=== PATIENT | female | born 1990 | race Caucasian/White ===

== ENCOUNTER 2020-03-08 03:07 | Outpatient (CLI) | payer OTHER, SELFPAY ==
[2020-03-08 10:14] LABS: HCT 43.6 % (36.0-46.0); HGB 14.8 g/dL (11.2-15.7); MCH 29.9 pg (27.0-33.0); MCHC 33.9 % (32.0-36.0); MCV 88.1 fL (80-95); MPV 9.1 fL (8.0-11.0); Platelet Count 349 10^3/uL (130-400); RBC 4.95 10^6/uL (3.93-5.22); RDW 11.9 % (11.7-14.6); RDW-SD 38.4 fL
[2020-03-08 11:27] LABS: ALT 24 U/L (14-59); AST 11 U/L (15-37); Albumin 4.4 g/dL (3.4-5.0); Alkaline Phosphatase 49 U/L (46-116); Anion Gap 8.2 mmol/L (3-11); BUN 16 mg/dL (7-18); Bilirubin, Total 0.6 mg/dL (0.2-1.0); CO2 26.8 mmol/L (21.0-32.0); CREATININE 0.85 mg/dL (0.55-1.02); Calcium 8.7 mg/dL (8.5-10.1); Calculated LDL 176 mg/dL (<100); Chloride 104 mmol/L (98-107); Cholesterol 268 mg/dL (<200); Glucose 89 mg/dL (74-106); HDL Cholesterol 84 mg/dL (40-60); Sodium 139 mmol/L (136-145); TSH (W/Ref FT4) 2.82 uIU/mL (0.36-3.74); Total Protein 7.7 g/dL (6.4-8.2); Triglyceride 44 mg/dL (<150)
== END 2020-03-08 03:27 ==
PROVIDERS: PCP Family Medicine; Visit Provider Family Medicine
DX: Z00.00 Encounter for general adult medical examination without abnormal findings (principal)
CPT/HCPCS: 36415; 80053; 80061; 85027; 84443

== ENCOUNTER 2021-06-06 03:35 | Outpatient (CLI) | payer OTHER, SELFPAY ==
[2021-06-06 08:07] LABS: Hemoglobin A1C 4.8 % (<5.7)
[2021-06-06 09:53] LABS: ALT 26 U/L (14-59); AST 13 U/L (15-37); Albumin 4.3 g/dL (3.4-5.0); Alkaline Phosphatase 52 U/L (46-116); Anion Gap 6.6 mmol/L (3-11); BUN 13 mg/dL (7-18); Bilirubin, Total 0.7 mg/dL (0.2-1.0); CO2 28.4 mmol/L (21.0-32.0); CREATININE 0.8 mg/dL (0.55-1.02); Calculated LDL 167 mg/dL (<100); Chloride 106 mmol/L (98-107); Cholesterol 253 mg/dL (<200); Glucose 86 mg/dL (74-106); HDL Cholesterol 67 mg/dL (40-60); Potassium 4.2 mmol/L (3.5-5.1); Sodium 141 mmol/L (136-145); TSH (W/Ref FT4) 2.79 uIU/mL (0.36-3.74); Total Protein 7.4 g/dL (6.4-8.2); Triglyceride 96 mg/dL (<150)
== END 2021-06-06 03:36 | disposition home or self-care (01) ==
LOC: LBO 03:35
PROVIDERS: PCP Family Medicine; Visit Provider Family Medicine
DX: Z00.00 Encounter for general adult medical examination without abnormal findings (principal); E11.9 Type 2 diabetes mellitus without complications
CPT/HCPCS: 36415; 80053; 80061; 83036; 84443

== ENCOUNTER 2023-08-20 09:40 | Outpatient (REF) | payer OTHER, SELFPAY ==
--- NOTE | 2023-08-20 08:40 | PAPFT_PTH ---
PATIENT: Vicki Ferrell LOC: DO U#:[id number] AGE/SX: 33/F ROOM: RE08/20/[address]: Iman Riddle NP : 1990 BED: DIS: 08/20/2023 SPEC #: [id number] RECD: 08/20/23 13:14 STATUS: MARÍAKary HEMPHILL #: [id number] RAMIN: 08/20/23 08:[address]: Iman Riddle NP DEPT: [facility] Cytology RECD BY: Sarah Melara ENTERED: 08/20/23 13:15 SP TYPE: PAPFT OTHR DR: Patsy Hernández MD, DC Tissues: 1 - CX/ENDOCX FOR PAP SMEARS Procedures: PAP THIN PREP/UVM Screening HPV DNA PROBE Comments: [id number]
== END 2023-08-20 09:41 | disposition home or self-care (01) ==
LOC: LBN 09:40
PROVIDERS: PCP Family Medicine; Visit Provider Nurse Practitioner Women's Health
DX: Z12.4 Encounter for screening for malignant neoplasm of cervix (principal)
CPT/HCPCS: 88142; 87624

== ENCOUNTER 2024-02-21 18:07 | Emergency (ER) | payer OTHER, SELFPAY ==
[2024-02-21 18:09] VITALS: BP 135/85; PULSE 103; RESP 18; TEMP 37.6; O2SAT 98
--- NOTE | 2024-02-21 18:15 | DI.RAD_ITS ---
Exam(s) XR CHEST 2V PA LATERAL EXAM: XR CHEST 2V PA LATERAL CLINICAL HISTORY: cough, fever TECHNIQUE: 2D digital imaging was performed. Two views. COMPARISON: No exams were available for comparison FINDINGS: HEART: Normal size. Aorta: Not dilated. PULMONARY VASCULATURE: Normal. MEDIASTINUM: Unremarkable. LUNGS: A patchy infiltrate is noted in the posterior left lower lobe. The right lung is clear. PLEURAL SPACE: No pleural effusion or pneumothorax. BONE:Unremarkable for age. SOFT TISSUES: Unremarkable. IMPRESSION: Left lower lobe pneumonia. DATA REPOSITORY: RADIATION DOSE DELIVERED:
[2024-02-21 18:23] VITALS: BP 135/85; PULSE 103; RESP 18; TEMP 37.6; O2SAT 98
--- NOTE | 2024-02-21 18:23 | ED.GENADUL_ITS ---
Discharge Plan Disposition Patient Disposition: Home Condition: Stable Discharge Details Clinical Impression: Left lower lobe pneumonia Primary Care Provider: Patsy Hernández ED Provider: Saeed Dickerson Home Meds and New Rx's Prescriptions: New amoxicillin-pot clavulanate 875-125 mg tablet 1 tab PO BID 5 Days Qty: 10 0RF azithromycin 250 mg tablet 250 mg PO DAILY 4 Days Qty: 4 0RF Rx Instructions: start on day 2 of therapy Continued Xywav 0.5 gram/mL solution 4.5 g PO BID Rx Instructions: administer the first dose at bedtime and the second dose 2.5-4 hours later lisdexamfetamine [Vyvanse] 20 mg capsule 40 mg PO DAILY albuterol sulfate [Ventolin HFA] 90 mcg/actuation HFA aerosol inhaler 2 puff inhalation QID PRN (Reason: shortness of breath or wheezing) Qty: 8.5 4RF Discharge Instructions Instructions: Azithromycin (Systemic), Amoxicillin and Clavulanate, Pneumonia, Adult ED Additional Instructions: You were seen in the emergency department for left lower lobe pneumonia. I am starting you on 2 different antibiotics to cover nearly all causes of bacterial pneumonia including Augmentin and azithromycin. 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 Please use therapeutic dosing of Tylenol (acetamenophen) & Advil (ibuprofen) in an alternating fashion as follows: Take 1000mg of Tylenol every 6 hours without missing doses- that is 4 times per day. [place] in between the Tylenol dosings, take 400-600mg of Advil also on a 6 hour schedule, that is also 4 times per day. The daily maximum dosing of Tylenol is 4000mg, and the daily maximum dosing of Advil is 2400mg. This is safe to do for weeks. Please note that some common cold medications & prescription pain medications may contain acetamenophen and you need to read OTC drug labels and factor that in to maximum daily dosings. Use your inhaler as needed for mild shortness of breath, please return to the emergency department for any severe increase in respiratory distress Referrals: Patsy Hernández MD, [place] [Primary Care Provider] - Discharge Data Discharge Date/Time-TO BE ENTERED AT DEPARTURE: 02/21/24 19:23 HPI General Date/Time Provider Initiated Documentation: 02/21/24 18:12 . HPI Narrative: 33 year-old female presents to ED today by POV/ambulating with a chief complaint of fevers, feels lousy, coughing with onset all week. Quality described as malaise, body aches, mild dizziness, no radiation to shortness of breath, chest pain, intractable nausea/vomiting, syncope. Severity is described as moderate to severe. Palliating factors include taking intermittent Tylenol and ibuprofen. Provoking factors include nothing specific. Patient not anticoagulated. Related Data Home Medications ?Medication ?Instructions ?Recorded ?Confirmed sodium, calcium, magnesium, 4.5 g PO BID 04/14/21 02/21/24 potassium oxybates 0.5 gram/mL oral soln (Xywav) albuterol sulfate 90 mcg/actuation 2 puff inhalation QID PRN 01/31/22 02/21/24 aerosol inhaler (Ventolin HFA) shortness of breath or wheezing #8.5 grams lisdexamfetamine 20 mg capsule 40 mg PO DAILY 05/04/22 02/21/24 (Vyvanse) amoxicillin 875 mg-potassium 1 tab PO BID 5 days #10 tabs 02/21/24 clavulanate 125 mg tablet azithromycin 250 mg tablet 250 mg PO DAILY 4 days #4 tabs 02/21/24 Previous Rx's ?Medication ?Instructions ?Recorded albuterol sulfate 90 mcg/actuation 2 puff inhalation QID PRN 01/31/22 aerosol inhaler (Ventolin HFA) shortness of breath or wheezing #8.5 grams amoxicillin 875 mg-potassium 1 tab PO BID 5 days #10 tabs 02/21/24 clavulanate 125 mg tablet azithromycin 250 mg tablet 250 mg PO DAILY 4 days #4 tabs 02/21/24 Allergies Allergy/AdvReac Type Severity Reaction Status Date / Time protriptyline AdvReac Intermediate Swelling/Ed Unverified 02/21/24 18:12 mauro General Stated Complaint: Fever ABBEY: 3 Review of Systems All systems reviewed & are unremarkable except as noted in HPI and below Exam Narrative Exam Narrative: GENERAL APPEARANCE: Well-nourished, non-toxic, awake and alert, atraumatic, no acute distress. SKIN: Warm, pink, dry, intact, without rashes/lesions/ulcerations. HEAD: Normocephalic, atraumatic, normal hair distribution for gender/age. EYES: Normal conjunctiva, no exudates on lids/lashes. ENT: Nares patent, no circumoral cyanosis, no facial swelling NECK: Supple, trachea midline, painless cervical ROM. LUNGS/CHEST: Lungs CTA bilaterally, non-labored respirations, normal A/P diameter, symmetrical expansion, no chest wall deformity HEART (CV/PV): Regular rate and rhythm without murmur, no peripheral edema, no JVD. ABDOMEN: Soft, non-distended, no guarding. MSK: Normal ROM, no swelling/deformity to bilateral UEs or LEs, moving all extremities without weakness, no cyanosis, spine midline without tenderness, normal curvature. NEURO: Mental Status AAOx4 - alert to person, place, time, events No facial droop, no forehead involvement. Motor: No focal weakness - strength 5/5 in bilateral UEs and LEs, proximal and distal, symmetric. Sensory: sensation intact to light touch globally. Gait normal: patient ambulated without ataxia into ED room. PSYCH: euthymic, cooperative, pleasant, appropriate speech Course Vital Signs Vital signs: Vital Signs Temperature 37.6 C 02/21/24 18:09 Pulse 103 H 02/21/24 18:09 Respiratory Rate 18 02/21/24 18:09 Blood Pressure 135/85 02/21/24 18:09 Pulse Oximetry 98 02/21/24 18:09 Temperature 37.6 C 02/21/24 18:09 Pulse 103 H 02/21/24 18:09 Respiratory Rate 18 02/21/24 18:09 Blood Pressure 135/85 02/21/24 18:09 Pulse Oximetry 98 02/21/24 18:09 Medical Decision Making This dictation utilizes [id number] dictation software and may contain unedited grammatical errors. 33 year-old female presents to ED today by POV/ambulating with a chief complaint of fevers, feels lousy, coughing with onset all week. Quality described as ma laise, body aches, mild dizziness, no radiation to shortness of breath, chest pain, intractable nausea/vomiting, syncope. Severity is described as moderate to severe. Palliating factors include taking intermittent Tylenol and ibuprofen. Provoking factors include nothing specific. Patients' medical history: Asthma. Family and social history: noncontributory, no recent travel, no sick contacts. Pertinent exam findings / vital signs include lungs CTA, benign cardiac exam, nontoxic vitals. Differential / pathologies of concern include pneumonia, viral syndrome, not hypoxic respiratory failure. Diagnostic studies of: -X-ray chest, COVID/flu/RSV PCR-x-ray shows left lower lobe pneumonia, viral panel negative. Interventions of: -Started on azithromycin/Augmentin. ED Course/Assessment/Plan: 33-year-old otherwise healthy female presents with a week onset of fever and mild cough, has no hypoxia, has been tolerating p.o. intake and in no respiratory distress, x-ray shows left lower lobe pneumonia and started antibiotic treatment, stressed strict return criteria for any worsening despite treatment or respiratory distress. Findings not consistent with sepsis, hypoxic respiratory failure. Disposition of Left Lower Lobe Pneumonia. Patient verbalized understanding of the plan and return to ED criteria and engaged in shared decision making. Medical Records Medical records reviewed: Yes I reviewed the patient's medical records. Imaging Data Radiologic Study: Attestation: I personally reviewed and interpreted this imaging study as follows: Imaging: X-Ray Radiologist's impression: EXAM: XR CHEST 2V PA LATERAL CLINICAL HISTORY: cough, fever TECHNIQUE: 2D digital imaging was performed. Two views. COMPARISON: No exams were available for comparison FINDINGS: HEART: Normal size. Aorta: Not dilated. PULMONARY VASCULATURE: Normal. MEDIASTINUM: Unremarkable. LUNGS: A patchy infiltrate is noted in the posterior left lower lobe. The right lung is clear. PLEURAL SPACE: No pleural effusion or pneumothorax. BONE:Unremarkable for age. SOFT TISSUES: Unremarkable. IMPRESSION: Left lower lobe pneumonia. Lab Data Lab results reviewed: Yes I reviewed the patient's lab results. 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 has stopped Lisdexamfetamine and continued Sodium Oxybate Asthma (Chronic) Medical History (Updated 02/21/24 @ 18:52 by ALESHIA Mejias) Depressive disorder Fatigue neg labs Neck ache 07/02/14 Rash 07/02/14 Skin lesion of face 08/11/14 left eyebrow, bubbly lesion 3mm by 2mm present over a year Surgical History (Updated 08/20/23 @ 08:48 by Iman Riddle NP) H/O knee surgery right knee; ligament tear x 2 S/P tonsillectomy and adenoidectomy 03/12/08 Family History Mother Depression Hyperlipidemia Father , age 57 Essential hypertension Bladder cancer Sister Hypothyroid Brother Depression Maternal Grandfather , in his 70s Diabetes Heart disease Chronic obstructive lung disease Lung cancer Throat cancer Alcohol abuse Paternal Grandfather Diabetes Essential hypertension Prostate cancer Depression Hyperlipidemia Maternal Grandmother , in her 70s Diabetes Heart disease Stroke Depression Cancer ? COLON Hypertension Paternal Grandmother Essential hypertension Hyperlipidemia Depression Daughter No problems noted. Daughter No problems noted. Social History Smoking/Tobacco Use Status: Never Second Hand Exposure: No Smoking risk assessment performed?: Yes Alcohol Intake: current Alcohol Intake frequency: a few times a month Alcohol type: hard liquor Drug use: Never Substance use type: does not use Caregiver/Support person: No Household members: spouse and children Housing: house Communication Needs: None Do you need help understanding health information?: Rarely Pets and animals: Yes Pets and animals: dog(s) Sexually active: Yes Do you think of yourself as: straight/heterosexual Current gender identity: female What is your relationship status?: How often do you talk on the phone with friends or family?: three or more times per week How often do you get together with friends or relatives?: three or more times per week How often do you attend episcopal or protestant services?: decline to answer Do you belong to any clubs or organized social groups?: yes Panel score (0-1 are the most socially isolated patients): 3 What type of physical activity do you participate in: walking and aerobic Duration: 60-90 minutes/day Frequency: 1-2 times per week Jennifer/Episcopal: None Special jennifer needs: No Seatbelt use: always Helmet use: Yes Helmet use: always Drive intox or ride w/intox hydraulic lift driver: No Do you feel safe in your relationship?: Yes Victim of physical abuse: No Victim of emotional abuse: No Victim of sexual abuse: No Would you like helpful sources: No Female Reproductive History Menstrual control method: other (partner with vasectomy) History History 2 Para 2 Hx # Term Pregnancies Multiple births Hx # Pregnancies Ectopic pregnancies AB induced Hx Number of Living Children AB spontaneous
[2024-02-21 19:12] LABS: COVID-19 PCR Negative (Negative); Influenza A PCR Negative (Negative); Influenza B PCR Negative (Negative); RSV PCR Negative (Negative)
[2024-02-21 19:13] LABS: Source Nasopharynx
[2024-02-21 19:23] VITALS: BP 112/75; PULSE 88; RESP 16; O2SAT 96
[2024-02-21] MEDS: Azithromycin 250 MG TAB 500 MG PO (19:27)
[2024-02-21] MEDS: Amoxicillin 875/Clav. 125 TAB PO (19:27)
== END 2024-02-21 19:23 | disposition home or self-care (01) ==
PROVIDERS: Emergency Provider Physician Assistant; PCP Family Medicine
DX: J18.9 Pneumonia, unspecified organism (principal)
CPT/HCPCS: 87637; 99283; 71046